=== PATIENT | female | born 1965 | race Caucasian/White ===

== ENCOUNTER 2021-05-17 13:53 | Emergency (ER) | payer OTHER, SELFPAY ==
[2021-05-17 13:54] VITALS: BP 120/88; PULSE 92; RESP 20; TEMP 36.6; O2SAT 94; BMI 18.3
[2021-05-17 15:20] VITALS: BP 117/83; PULSE 83; RESP 18; TEMP 36.5; O2SAT 94; BMI 18.3
--- NOTE | 2021-05-17 16:14 | HMH.EDUTC ---
[facility] [place] Disposition Clinical Impression: Skin problem Disposition: Home, Self-Care Condition on Discharge: Good Instructions: Clindamycin, Mupirocin, DI for Cellulitis -- Adult, DI for Skin Abscess Additional Instructions: *Start antibiotic(s) immediately and be sure to take as ordered for the FULL length of time although you may be feeling better or start to see improvement in the next 24-48 hours *Monitor closely. Outlined redness so that you can monitor easier. Follow up immediately for new or worsening symptoms including but not limited to redness, swelling, streaking from site fever or chills. *Warm compress 15 minutes 3-4 times day *Never squeeze or pop these on your own. Seek immediate medical attention next time this occurs *Monitor Temp. Tylenol every 4 hours as needed and ibuprofen every 6 hours as needed (as long as your primary care doctor has told you that it is ok to take both. For fever, aches, pain. ER if no less that 101 despite Tylenol and ibuprofen Follow up with your family doctor/primary care physician in the next 48-72 hours if no improvement Use cream on lesion Return if needed Straight to ER if any life threatening symptoms Make sure to eat with medication and eat yogurt to help prevent stomach upset Prescriptions: clindamycin HCL [Clindamycin HCl] 300 mg PO TID 7 Days #21 cap Transmission Status: Pending to [facility] Mupirocin Calcium [Mupirocin 2% Cream 15gm] 1 applicatio TP TID #15 gm Transmission Status: Pending to [facility] Referrals: Marialuisa Siddiqi PA [Primary Care Provider] - As needed Time of Disposition: 16:25 Medical Decision Making - Kenny Inquiry Pt receiving controlled substance: No Kenny was queried for this patient: No Vital Signs: 05/17/21 13:54 05/17/21 15:20 Temperature 98 F 97.7 F Temperature Source Oral Oral Pulse Rate [Radial] 92 H 83 Respiratory Rate 20 18 Blood Pressure [Right Arm] 120/88 117/83 Blood Pressure Mean [Right Arm] 98 94 Blood Pressure Source [Right Arm] Automatic Cuff Blood Pressure Position [Right Arm] Sitting Sitting 02 Sat by Pulse Oximetry 94 L 94 L Oxygen Delivery Method Nasal Cannula Nasal Cannula Oxygen Flow Rate (LPM) 4 - Lab Data Lab results reviewed: Yes: I reviewed the patient's lab results. [facility] [place] HPI - General Stated complaint: sore inside mouth right side Time Seen by Provider: 05/17/21 16:14 Mode of Arrival: Ambulatory Source of Information: Patient Limitations: No Limitations Description of Symptoms (Recalled from Triage Doc. by RN): pt c/o lesion to rt lower side of face states it started really small 4-5 months ago and over the last several days it has gotten larger. denies any drainage from site. denies fever, nausea HEENT Symptoms (Recalled from RN notes): Yes Resp Symptoms (Recalled from RN notes): No Skin Symptoms (Recalled from RN notes): No MS Symptoms (Recalled from RN notes): No Functional Status (Recalled from RN notes): WNL - History of Present Illness Provider Complaint: Patient states that she had a small zit like area on her right lower jaw area that has come and gone for a couple months states that it would get red and swell then go away but for the last few days it has continued to get larger States that she put a warm rag on it this morning and it went down some but this evening it was feeling warm and looking a little red so she came in - Related Data Home Medications Medication Instructions Recorded Confirmed Aspirin 81 mg PO DAILY 09/23/18 09/23/18 Ipratropium/Albuterol Sulfate 1 dose INHALATION DAILY 09/23/18 09/23/18 [Iprat-Albut 0.5-3(2.5) mg/3 ml] Montelukast Sodium [Montelukast 10 mg PO DAILY 09/23/18 09/23/18 10mg Tab] Omeprazole [Omeprazole 20mg 20 mg PO DAILY 09/23/18 09/23/18 Capsule] Previous Rx's Medication Instructions Recorded Mupirocin Calcium [Mupirocin 2% 1 applicatio TP TID #15 gm 05/17/21 Cream 15gm] clindamycin HCL [Clindamycin HCl] 300
[2021-05-17 16:31] VITALS: BP 117/83; PULSE 83; RESP 18; TEMP 36.5; O2SAT 94
== END 2021-05-17 16:38 | disposition home or self-care (01) ==
LOC: ER 14:06 → UTC 14:07
PROVIDERS: Emergency Provider Nurse Practitioner; PCP Nurse Practitioner Family
DX: L02.02 Furuncle of face (principal); F17.210 Nicotine dependence, cigarettes, uncomplicated
CPT/HCPCS: 99202; G0463